=== PATIENT | female | born 1960 | race Two or more races ===

== ENCOUNTER 2021-04-18 07:10 | Day surgery (SDC) | payer OTHER ==
[~2021-04-18 07:10] MED LIST: AVALIDE PO; CARTIA XT240 MG PO; FORTAMET1000 MG PO; GLIMEPIRIDE4 MG PO; HYDROCHLOROTHIA25 MG PO; LANTUS; LASIX20 MG PO; POTAS PO; PROTONIX40 MG PO; VITAMIN C PO; ZOCOR40 MG PO; [UNRECOGNIZED DRUG - CODE]
== END 2021-04-18 12:45 | disposition home or self-care (01) ==
LOC: CIR.AMB 07:10 → EDBD 08:30 → CIR.AMB 08:30
PROVIDERS: ATTEND Orthopaedic Surgery Hand Surgery
DX: M71.341 Other bursal cyst, right hand (principal); M65.231 Calcific tendinitis, right forearm; Z20.822 Contact with and (suspected) exposure to COVID-19

== ENCOUNTER 2022-09-14 06:32 | Day surgery (SDC) | payer OTHER | END 2022-09-14 10:10 | disposition home or self-care (01) | LOC: AMB-ENDOS 06:32 → CIR.AMB 13:00 | PROVIDERS: ATTEND Surgery | DX: D12.0 Benign neoplasm of cecum (principal); K57.30 Diverticulosis of large intestine without perforation or abscess without bleeding; Z20.822 Contact with and (suspected) exposure to COVID-19 ==

== ENCOUNTER 2025-01-18 05:46 | Day surgery (SDC) | payer OTHER ==
[2025-01-11 14:20] VITALS: BP 96/50
[~2025-01-18] VITALS: Ht 167.6 cm; Wt 104.3 kg
[2025-01-18] MEDS ORDERED: BUPIVACAINE HCL/MPF 0.5% 30ML VIAL ONE (06:55)
[2025-01-18] MEDS ORDERED: METHYLPREDNISOLONE ACETATE 80 MG/ML VIAL ONE (06:55)
[2025-01-18] MEDS ORDERED: EPINEPHRINE HCL/PF 1 MG/ML AMPUL ONE (06:55)
[2025-01-18] MEDS ORDERED: CEFAZOLIN SODIUM 1,000 MG VIAL ONE (07:03)
[2025-01-18] MEDS ORDERED: CEFOXITIN SODIUM 2,000 MG VIAL IV ONE (07:04)
[2025-01-18] MEDS ORDERED: MEPERIDINE HCL/PF 25 MG/ML VIAL IM PRN (08:45)
[2025-01-18] MEDS ORDERED: PROMETHAZINE HCL 25 MG/ML AMPUL IM PRN (08:45)
[2025-01-18] MEDS ORDERED: TRAM1TAB98 PO (08:48)
[2025-01-18] MEDS ORDERED: CEFADROXIL500 MG PO (08:48)
== END 2025-01-18 13:20 | disposition home or self-care (01) ==
LOC: CIR.AMB 05:46
PROVIDERS: ATTEND Orthopaedic Surgery Sports Medicine
DX: M23.252 Derangement of posterior horn of lateral meniscus due to old tear or injury, left knee (principal); M17.12 Unilateral primary osteoarthritis, left knee; M23.52 Chronic instability of knee, left knee